=== PATIENT | female | born 1980 ===

== ENCOUNTER 2020-08-08 10:00 | Inpatient (IN) ==
[2020-08-08] MEDS ORDERED: Lactated Ringers 1000 ml BAG 1,000 ML IV ONE ×2 (10:12→18:35)
[2020-08-08] MEDS ORDERED: Buffered Lidocaine 1% SYRIN 1 ml INTRADERM ONE (10:12)
[2020-08-08] MEDS ORDERED: Lactated Ringers 1000 ml BAG 1,000 ML IV SCH ×2 (11:00→19:00)
[2020-08-08] MEDS ORDERED: Oxytocin in LR 20 UNITS/1,000 ML BAG IVPB SCH ×2 (11:00→21:00)
[2020-08-08 11:26] LABS: ABS Eosinophils 0.1 10^3/ul (0-0.6); ABS Lymphocytes 1.5 10^3/ul (1.0-4.8); ABS Monocytes 0.7 10^3/ul (0-0.8); ABS Neutrophils 7.5 10^3/ul (1.5-7.7); Eosinophil % 0.6 %; Hematocrit 32 % (35-47); Hemoglobin 10.9 g/dL (12.0-16.0); Lymphocyte % 15.2 %; Mean Corpuscular HGB Conc 34 g/dL (31-36); Mean Corpuscular Hemoglobin 30 pg (27-31); Mean Corpuscular Volume 88 fL (80-97); Mean Platelet Volume 8.2 fL (7.4-10.4); Platelet Count 224 10^3/uL (150-450); Red Blood Count 3.62 10^6 /uL (3.70-4.87); Red Cell Distribution Width 14 % (10-15); White Blood Count 9.8 10^3/uL (3.5-10.8)
[2020-08-08 11:47] LABS: Urine Benzodiazepine Screen None Detected (None Detect); Urine Cannabinoids Screen None Detected (None Detect); Urine Opiates Screen None Detected (None Detect)
[2020-08-08 15:04] LABS: Hepatitis B Surface Antigen Nonreactive (Nonreactive)
[2020-08-08] MEDS ORDERED: OBEPIDURAL 250 ML EPIDURAL ONE (17:44)
[2020-08-08] MEDS ORDERED: fentaNYL 100 mcg/2 ml 50 MCG/ML VIAL ONE (17:48)
[2020-08-08] MEDS: EPHEDrine (Pressors) 50 MG/ML VIAL IV PUSH PRN ×2 (18:20→18:36)
[2020-08-08] MEDS ORDERED: Phenylephrine 40 mcg/mL 10mL (400mcg) SYRINGE IV PUSH PRN ×2 (18:35)
[2020-08-08] MEDS ORDERED: Sodium Citrate/Citric Acid LIQ 15 ML UDC PO PRN (18:35)
[2020-08-08] MEDS ORDERED: EPHEDrine (Pressors) 50 MG/ML VIAL IV PUSH PRN (18:35)
[2020-08-08] MEDS ORDERED: OBEPIDURAL 250 ML EPIDURAL SCH (19:00)
[2020-08-08 20:19] LABS: Urine Appearance Cloudy; Urine Bilirubin Negative (Negative); Urine Blood Negative (Negative); Urine Color Yellow; Urine Glucose Negative (Negative); Urine Ketones Negative (Negative); Urine Nitrite Negative (Negative); Urine Protein Negative (Negative); Urine Specific Gravity 1.011 (1.002-1.030); Urine Urobilinogen Negative (Negative)
[2020-08-08] MEDS ORDERED: Dibucaine 1% OINT 28.35 GM TUBE PR PRN (20:24)
[2020-08-08] MEDS ORDERED: Glycerin ADULT 2.4 gm SUPP PR PRN (20:24)
[2020-08-08] MEDS ORDERED: Witch Hazel PAD JAR TOPICAL PRN (20:24)
[2020-08-08] MEDS ORDERED: Methylergonovine 0.2 mg AMPULE 1 ml AMP IM ONE (20:24)
[2020-08-09 06:54] LABS: ABS Eosinophils 0.1 10^3/ul (0-0.6); ABS Lymphocytes 1.7 10^3/ul (1.0-4.8); ABS Monocytes 0.8 10^3/ul (0-0.8); Eosinophil % 0.5 %; Hematocrit 31 % (35-47); Hemoglobin 10.8 g/dL (12.0-16.0); Mean Corpuscular HGB Conc 34 g/dL (31-36); Mean Corpuscular Hemoglobin 30 pg (27-31); Mean Corpuscular Volume 88 fL (80-97); Mean Platelet Volume 7.9 fL (7.4-10.4); Platelet Count 210 10^3/uL (150-450); Red Blood Count 3.56 10^6 /uL (3.70-4.87); Red Cell Distribution Width 14 % (10-15); White Blood Count 11.6 10^3/uL (3.5-10.8)
[2020-08-09] MEDS ORDERED: Albuterol HFA INHALER 8 gm MDI INH PRN (11:10)
[2020-08-10 07:46] VITALS: BP 124/77
== END 2020-08-10 11:34 | disposition home or self-care (01) | DRG 560 ==
LOC: MCHOBOUT 10:00 → MCHOB 10:14
PROVIDERS: ADMIT Obstetrics & Gynecology; ATTEND Obstetrics & Gynecology